=== PATIENT | male | born 1975 | race Two or more races ===

== ENCOUNTER 2016-12-08 11:17 | Emergency (ER) | payer MEDICAID ==
[~2016-12-08] VITALS: Ht 172.7 cm; Wt 93.2 kg
[2016-12-08] MEDS ORDERED: IBUP-1546 PO (11:31)
[2016-12-08] MEDS ORDERED: HYDROmorphone 2 MG/ML SYRINGE IVP ONE (12:30)
[2016-12-08] MEDS ORDERED: LIDOCAINE HCL BUFFERED 1% 20 ML VIAL INJ ONE (12:30)
[2016-12-08] MEDS ORDERED: CefTRIAXone 1 GM/DEXTROSE 50 ML IV ONE (12:30)
[2016-12-08] MEDS ORDERED: ONDANSETRON HCL 4 MG/2 ML VIAL IVP ONE (12:30)
[2016-12-08] MEDS ORDERED: PERTUSS(ACELL),DIPH,TET VAC/PF 0.5 ML VIAL IM ONE (12:30)
[2016-12-08 12:51] LABS: BASOPHILS # (AUTO) 0.11 K/uL (0.00-0.20); BASOPHILS % (AUTO) 0.8 % (0.0-2.0); EOSINOPHILS # (AUTO) 0.06 K/uL (0.00-0.70); EOSINOPHILS % (AUTO) 0.46 % (1.0-6.0); HEMATOCRIT 45.5 % (41-53); HEMOGLOBIN 14.8 g/dL (13.5-17.5); LYMPHOCYTES # (AUTO) 1.3 K/uL (1.0-4.8); LYMPHOCYTES % (AUTO) 9.4 % (22.0-44.0); MEAN CORPUSCULAR HEMOGLOBIN 29.9 pg (26.0-34.0); MEAN CORPUSCULAR HGB CONC 32.4 G/dL (31.0-37.0); MEAN CORPUSCULAR VOLUME 92 fL (80-100); MONOCYTES # (AUTO) 1.1 K/uL (0.1-1.0); MONOCYTES % (AUTO) 7.8 % (2.0-9.0); NEUTROPHILS # (AUTO) 11.1 K/uL (1.8-7.7); NEUTROPHILS % (AUTO) 81.7 % (40.0-70.0); PLATELET COUNT (AUTO) 220 K/uL (150-450); RED BLOOD CELL COUNT(AUTO) 4.94 MIL/uL (4.50-5.90); RED CELL DISTRIBUTION WIDTH 14.7 % (11.5-14.5); WHITE BLOOD COUNT (AUTO) 13.5 K/uL (4.5-11.0)
[2016-12-08 13:08] LABS: ANION GAP 10 mmol/L (8-16); CALCIUM, TOTAL 8.9 mg/dL (8.8-10.5); CARBON DIOXIDE 24 mmol/L (22-29); CHLORIDE 104 mmol/L (98-107); CREATININE 1.03 mg/dL (0.60-1.30); GLOMERULAR FILTR. RATE CALC > 60 mL/min (>60); POTASSIUM 3.7 mmol/L (3.5-5.1); SODIUM SERUM 138 mmol/L (136-145); UREA NITROGEN, BLOOD 10 mg/dL (7-18)
[2016-12-08 13:49] VITALS: BP 147/78
== END 2016-12-08 14:35 | disposition home or self-care (01) ==
LOC: EMS 11:19
DX: L02.416 Cutaneous abscess of left lower limb (principal); R73.9 Hyperglycemia, unspecified
CPT/HCPCS: 10060; 36415; 80048; 85025; 87070; 87077; 87205; 90471; 90715; 96365; 96366; 96375; 99285; J0696; J1170; J2405; J3490; 87147

== ENCOUNTER 2016-12-10 11:00 | Emergency (ER) | payer MEDICAID ==
[~2016-12-10] VITALS: Ht 172.7 cm; Wt 90.5 kg
[~2016-12-10 11:00] MED LIST: IBUP-1546 PO
[2016-12-10] MEDS ORDERED: IBUP-2070 PO (11:07)
[2016-12-10] MEDS ORDERED: CEPH500C2 PO (11:07)
[2016-12-10] MEDS ORDERED: DOXY100C2 PO (11:07)
[2016-12-10] MEDS ORDERED: HYDR-3965 PO (11:07)
[2016-12-10] MEDS ORDERED: KETOROLAC TROMETHAMINE 30 MG/ML VIAL IVP ONE (11:30)
[2016-12-10] MEDS ORDERED: CEFTAROLINE 600 MG/D5W 250 ML IV ONE (11:30)
[2016-12-10 12:20] VITALS: BP 139/82
== END 2016-12-10 13:12 | disposition home or self-care (01) ==
LOC: EMS 11:01
DX: L02.415 Cutaneous abscess of right lower limb (principal); L03.115 Cellulitis of right lower limb; A49.02 Methicillin resistant Staphylococcus aureus infection, unspecified site; Z48.00 Encounter for change or removal of nonsurgical wound dressing
CPT/HCPCS: 96365; 96375; 99284; J0712; J1885

== ENCOUNTER 2016-12-11 11:25 | Emergency (ER) | payer MEDICAID ==
[~2016-12-11] VITALS: Ht 172.7 cm; Wt 100.0 kg
[~2016-12-11 11:25] MED LIST changes: +CEPH500C2 PO; +DOXY100C2 PO; +HYDR-3965 PO; -IBUP-1546 PO; +IBUP-2070 PO
[2016-12-11] MEDS ORDERED: CEFTAROLINE 600 MG/D5W 250 ML IV ONE (14:45)
[2016-12-11 17:01] VITALS: BP 128/79
== END 2016-12-11 17:02 | disposition home or self-care (01) ==
LOC: EMS 11:28
DX: L03.115 Cellulitis of right lower limb (principal); L02.415 Cutaneous abscess of right lower limb; A49.02 Methicillin resistant Staphylococcus aureus infection, unspecified site
CPT/HCPCS: 96365; 96366; 99285; J0712

== ENCOUNTER 2016-12-12 09:58 | Emergency (ER) | payer MEDICAID ==
[~2016-12-12] VITALS: Ht 172.7 cm; Wt 91.0 kg
[2016-12-12 10:18] VITALS: BP 158/84
== END 2016-12-12 11:16 | disposition home or self-care (01) ==
LOC: EMS 09:59
DX: L02.416 Cutaneous abscess of left lower limb (principal)
CPT/HCPCS: 99282

== ENCOUNTER 2016-12-16 09:51 | Emergency (ER) | payer MEDICAID ==
[~2016-12-16] VITALS: Ht 170.2 cm; Wt 59.0 kg
[2016-12-16 11:45] VITALS: BP 139/77
== END 2016-12-16 11:48 | disposition home or self-care (01) ==
LOC: EMS 09:52
DX: Z48.00 Encounter for change or removal of nonsurgical wound dressing (principal)
CPT/HCPCS: 99281